=== PATIENT | male | born 1985 | race Hispanic/Latino ===

== ENCOUNTER 2018-05-06 19:59 | Emergency (ER) | payer BC ==
[~2018-05-06] VITALS: Ht 185.4 cm; Wt 102.1 kg
[2018-05-06] MEDS ORDERED: SODIUM CHLORIDE 0.9% 1000ML 1,000 ML IV STA ×2 (20:33→22:28)
[2018-05-06] MEDS ORDERED: PANTOPRAZOLE 40 MG 10ML VIAL IV STA (20:33)
[2018-05-06 20:43] LABS: BASOPHILS # (AUTO) 0.1 (0.0-0.1); BASOPHILS % 0.5 % (0.0-1.0); EOSINOPHILS # (AUTO) 0.1 (0.0-0.4); EOSINOPHILS % 0.7 % (0.0-6.0); HEMATOCRIT 43.8 % (38.2-49.6); HEMOGLOBIN 15.5 g/dL (14.0-18.0); LYMPHOCYTES # (AUTO) 2.8 (1.0-3.2); LYMPHOCYTES % 25.2 % (18.0-39.1); MEAN CORPUSCULAR HEMOGLOBIN 30.8 pg (28-32); MEAN CORPUSCULAR HGB CONC 35.4 g/dL (31-35); MEAN CORPUSCULAR VOLUME 87.1 fL (81-99); MONOCYTES # (AUTO) 1.2 (0.2-0.8); MONOCYTES % 10.6 % (4.4-11.3); NEUTROPHILS % 62.7 % (38.7-80.0); PLATELET COUNT 242 x10e3/uL (140-360); RED BLOOD COUNT 5.03 x10e6/uL (4.3-5.7); RED CELL DISTRIBUTION WIDTH 12.9 % (11.7-14.4)
[2018-05-06 20:52] LABS: CLARITY,URINE CLEAR (CLEAR); COLOR,URINE COLORLESS (YELLOW); LEUKOCYTE ESTERASE ,URINE TRACE (NEGATIVE); NITRITE,URINE NEGATIVE (NEGATIVE); PROTEIN,URINE DIPSTICK NEGATIVE (NEGATIVE)
[2018-05-06 20:53] LABS: BILIRUBIN,URINE NEGATIVE (NEGATIVE); KETONES,URINE NEGATIVE (NEGATIVE); URINE UROBILINOGEN 0.2 mg/dL (0.2 - 1)
[2018-05-06 20:59] LABS: ALBUMIN 4.6 g/dL (3.5-5.0); CALCIUM 10.6 mg/dL (8.4-10.2); CREATININE, SERUM 1.55 mg/dL (0.72-1.25); MAGNESIUM 2.2 MG/DL (1.3-2.1)
[2018-05-06 21:05] LABS: CREATINE KINASE MB 2.2 ng/mL (0-5.0)
[2018-05-06 21:18] LABS: INR 1.02; PROTHROMBIN TIME 12.6 seconds (11.9-14.5)
[2018-05-06 21:19] LABS: PARTIAL THROMBOPLASTIN TIME 24.1 seconds (23.8-35.5)
--- NOTE | 2018-05-06 22:11 | Diagnostic Imaging Report ---
Examination: Single AP view of the chest. COMPARISON: None. INDICATION: Body cramping, chest pain IMPRESSION: 1. Lines and Tubes: None 2. Lungs are grossly clear. No consolidation or effusion. 3. Cardiac silhouette is at the upper limit of normal. Pulmonary vasculature is normal. 4. No acute bony abnormalities. Signed by: Dr. Alonzo Luevano M.D. on 05/06/2018 10:08 PM
[2018-05-06 22:50] VITALS: BP 132/89
== END 2018-05-06 23:10 | disposition home or self-care (01) ==
LOC: ER 19:59
DX: T67.2XXA Heat cramp, initial encounter (principal)
CPT/HCPCS: 36415; 71045; 80053; 81001; 82150; 82550; 82553; 83690; 83735; 84484; 85025; 85610; 85730; 87086; 93005; 99283; J7030